=== PATIENT | male | born 1995 | race African-American/Black ===

== ENCOUNTER 2024-02-05 21:45 | Emergency (ER) | payer BC ==
[2024-02-06 01:57] LABS: #Basophils Less than 0.03 10x3/uL (0.0-0.2); %Basophils 0.3 % (0.0-1.0); %Eosinophils 3.3 % (0.0-10.0); %Monocytes 6.1 % (0.0-10.0); %Neutrophils 54.7 % (42.0-75.0); Hematocrit 43.6 % (42.0-52.0); Hemoglobin 14.6 g/dL (14.0-18.0); Mean Corpuscular HGB CONC 33.5 g/dL (32.0-36.0); Mean Corpuscular Hemoglobin 26.4 pg (27.0-31.0); Mean Corpuscular Volume 78.7 fL (78.0-98.0); Mean Platelet Volume 10.1 fL (7.4-10.4); Platelet Count 282 10x3/uL (130-400); RBC Distribution Width 13.6 % (11.5-14.5); Red Blood Cell (RBC) Count 5.54 mill/uL (4.70-6.10)
[2024-02-06 02:15] LABS: ALT (SGPT) 34 U/L (8-55); AST (SGOT) 18 U/L (5-34); Albumin 3.7 g/dL (3.5-5.0); Alkaline Phosphatase 80 U/L (40-110); Anion Gap 16 mmol/L (10-20); BUN (Urea Nitrogen) 14 mg/dL (8.9-20.6); Bilirubin, Total 0.4 mg/dL (0.2-1.2); Calc. Creatinine Clearance 0 mL/min (70-130); Calcium 9.9 mg/dL (7.8-10.44); Carbon Dioxide 24 mmol/L (22-29); Chloride 104 mmol/L (98-107); Estimated GFR 110; Globulin 3.4 g/dL (2.4-3.5); Glucose 135 mg/dL (70-105); Magnesium 1.8 mg/dL (1.6-2.6); Protein, Total 7.1 g/dL (6.0-8.3); Sodium 140 mmol/L (136-145)
[2024-02-06 02:18] LABS: Troponin I Less than 0.010 ng/mL (< 0.028)
== END 2024-02-06 02:25 | disposition home or self-care (01) ==
LOC: ERS 21:45
DX: R20.2 Paresthesia of skin (principal)
CPT/HCPCS: 36415; 71045; 80053; 83735; 84484; 85025; 93005